=== PATIENT | female | born 1960 | race Caucasian/White ===

== ENCOUNTER 2016-05-15 21:22 | Emergency (ER) | payer OTHER ==
[~2016-05-15] VITALS: Ht 170.2 cm; Wt 127.3 kg
[~2016-05-15 21:22] MED LIST: FES300 PO; HYDROCHLOROTHIAZIDE; RIZA5TAB34 PO; ROPI2TAB2 PO; TRIAMTERENE; [UNRECOGNIZED DRUG - MIXTURE]
[2016-05-15 21:37] VITALS: BP 173/107; PULSE 154; RESP 19; O2SAT 94
--- NOTE | 2016-05-15 21:53 | ED.REPORT ---
HPI-Chest Pain 40 and Over Date of Service May 15, 2016 ED Provider: Genaro Hassan MD Patient is a 56 year old female with a hx of HTN who presents to the ED following an episode of dysrhythmia last night. About a week ago, she woke up in the middle of the night rapid heart rate which lasted for about an hour. She has had three of these episodes over the past two months. Her episode last night felt worse then any previous episode. She is not on any anticoagulants and takes one baby aspirin every day. Pt is diaphoretic and does not report any other symptoms. Nursing Notes Stated Complaint: SOB, IRREGULAR HEART BEAT Chief Complaint: Dysrhythmia/Cardiac Nursing Notes Reviewed: Yes Allergies: Coded Allergies: Penicillins (Verified Allergy, Severe, 02/04/09) rash/nausea/vomiting diclofenac (Verified Allergy, Severe, RASH, 02/04/09) got quite sick Scheduled ([HCTZ/Tri 37.5/25mg]) AM Multivitamins/Vit C (Vitamin C 500MG W/ Folic Acid) Tab TID Ropinirole Hcl-Expunged Drug, Do Not Renew! (Requip-Expunged Drug, Do Not Renew! ) 2 Mg Tablet 2 MG PO HS General Time Seen by MD: 21:52 Chief Complaint Other (tachycardia) Hx Obtained From: Patient Arrived By: Walk-in Sudden in Onset?: Yes Onset Occurred: 1 day ago Symptom Duration: Since onset Severity: Current: No pain currently Recent Healthcare: No recent doctor visit, No recent hospitalization Similar Sx Previous: No Past Medical History Past Medical History Reports: Hypertension Past Surgical History Reports: Hysterectomy Family History colon cancer Social History Other Social History: , Local resident Ambulatory Status Independent Review of Systems Review of Systems Note: dysrhythmia, episode of tachycardia Skin: Reports Diaphoresis Complete sys rev & neg: except as marked. Physical Exam Initial Vital Signs Vital Signs (First) Date Time Temp Pulse Resp B/P Pulse Ox O2 Delivery O2 Flow Rate FiO2 05/15/16 21:37 37.0 154 19 173/107 94 Room Air Initial VS: Reviewed, Vital signs abnormal General/Constitutional: Awake, Alert, Well appearing, Well developed, Cooperative Appearance / Presentation: Positive: Obese Respiratory / Chest: Atraumatic, Breath sounds NL, Breath sounds = bilat, No respiratory distress, No rales, No rhonchi, No wheezing, No retractions Heart Rate / Rhythm: Positive: Irreg irregular rhythm, Tachycardia bilateral trace pitting edema chest mccormack nontender Interpretation & Diagnostics Lab Results Interpretation Result Diagram: 05/15/16214405/15/162144 Test 05/15/16 21:45 05/15/16 23:12 White Blood Count 7.0th/mm3 (3.8-10.1) Red Blood Count 4.68mil/mm3 (3.90-5.20) Hemoglobin 13.6g/dL (12.0-15.6) Hematocrit 41.6% (35.0-46.0) Mean Corpuscular Volume 88.9fL (81-100) Mean Corpuscular Hemoglobin 29.1pg (27.0-35.0) Mean Corpuscular Hemoglobin Concent 32.7% (32.0-37.0) Red Cell Distribution Width 14.8% (12.3-15.4) Platelet Count 209bil/L (150-400) Neutrophils (%) (Auto) 59.1% (40-74) Lymphocytes (%) (Auto) 28.0% (14-46) Monocytes (%) (Auto) 10.7% (4-12) Eosinophils (%) (Auto) 2.0% (0-5) Basophils (%) (Auto) 0.1% (0-3) Hold Purple Top Tube Received (Received) Prothrombin Time 10.1sec (8.1-12.5) Prothromb Time International Ratio 0.95ratio Hold Blue Top Tube Received (Received) Sodium Level 143mEq/L (134-144) Potassium Level 3.5mEq/L (3.5-5.2) Chloride Level 100mEq/L (97-108) Carbon Dioxide Level 28mmol/L (18-29) Blood Urea Nitrogen 16mg/dL (6-24) Creatinine 0.72mg/dL (0.57-1.00) Estimat Glomerular Filtration Rate 120mL/min (>59) Glucose Level 95mg/dL (60-99) Calcium Level 9.5mg/dL (8.5-10.1) Magnesium Level 2.3mg/dL (1.6-2.6) Total Bilirubin 0.3mg/dL (0.0-1.2) Aspartate Amino Transf (AST/SGOT) 24U/L (0-50) Alanine Aminotransferase (ALT/SGPT) 28U/L (0-32) Alkaline Phosphatase 108U/L (25-150) Troponin T 0.010ug/L (0.0-0.011) Total Protein 7.6g/dL (6.4-8.4) Albumin 4.2g/dL (3.4-5.0) Hold Red Top Tube Received (Received) Hold [place] Top Tube Received (Received) Hold [place]roy Top Tube Received (Received) Hold Urine Received (Received) Lab values outside NL range: no clinical significance. ECG Interpretation ECG Interpretation: left ventricular hyptertrophy Time: 21:40 Interpreted by: ED physician Rhythm / Conduction: Atrial fibrillation (150) ECG Interpretation: left ventricular hyptertrophy Time: 23:21 Interpreted by: ED physician Normal ECG Interpretation: Normal sinus rhythm (83) Re-Eval/Medical Decision Med Decision/Clinical Course 56-year-old female who had rapid A. fib with hypertension, who was given Cardizem 15 mg with slowing of her rate and then eventual conversion to normal sinus rhythm. Case was discussed with Dr. Canales (home performance consultant) who recommended increasing her aspirin from 81 to325 and she will see her in the office. Time of Eval: 23:00 Patient Status: Condition improved Re-Evaluation/Progress Note: Pt rechecked. Her heart rate has slowed and she now has a normal sinus rhythm. All her labs are normal. Will consult home performance consultant. Pt understands and agrees with plan. Time of Eval: 23:23 Patient Status: Condition improved Re-Evaluation/Progress Note: Pt rechecked. Pt informed of consultation with Dr. Canales and plan for treatment. Return to ED warnings given. Pt understands and agrees with plan. Consultation : Referral / Consult Name: Amanda Canales MD Consulted With: Cardiology Call Returned at: 23:14 Dumpcart Driver: Agrees with eval, Agrees with plan Note: Case discussed. Dr. Canales recommends a follow up visit and will call patient in the morning. She recommends the patient increase her aspirin dose to 325 mg daily. Counseled Regarding: Diagnosis, Lab results, Need for follow-up, When/why to return to ED Discharge & Departure Primary Impression: Atrial fibrillation Atrial fibrillation type: paroxysmal Qualified Code: I48.0 - Paroxysmal atrial fibrillation Disposition: Home Discharge Condition All VS Reviewed: Yes Condition: Stable Patient Instructions: Atrial Fibrillation (ED) Additional Instructions: We slowed your rate with Cardizem 15 mg IV. The rhythm then converted from atrial fibrillation back to a normal sinus rhythm. All of your labs were normal. Your EKG showed no significant changes other than the abnormal rhythm. I spoke with Dr. Canales, home performance consultant. She recommended a follow-up visit, she will call you to schedule an appointment. She recommended increasing your aspirin to 325 daily. Return to the emergency room if you have recurrent rapid or irregular heartbeat. Referrals: Glen De La Fuente MD (PCP) Scribe Attestation Portions of this note were transcribed by Tamara Kamara. I, Dr. Hassan personally performed the history, physical exam and medical decision-making; I reviewed and confirmed the accuracy of the information in the transcribed note. Signed by: Mckenzie Nair, 05/15/16 [id number] copies to: Glen De La Fuente MD, Howard L MD May 15, 2016 21:53 TAMARA KAMARA May 15, 2016 22:02
[2016-05-15] MEDS ORDERED: Diltiazem 5 mg/mL 5 mL Inj IVPUSH ONE (21:55)
[2016-05-15 22:11] LABS: BASOPHILS % (AUTO) 0.1 % (0-3); MONOCYTES % (AUTO) 10.7 % (4-12); Mean Corpuscular Hemoglobin 29.1 pg (27.0-35.0); Mean Corpuscular Volume 88.9 fL (81-100); NEUTROPHILS % (AUTO) 59.1 % (40-74); Platelet Count 209 bil/L (150-400)
[2016-05-15 22:16] LABS: INR 0.95 ratio
[2016-05-15 22:49] LABS: Magnesium 2.3 mg/dL (1.6-2.6); TROPONIN T 0.01 ug/L (0.0-0.011)
[2016-05-15 23:19] VITALS: BP 151/91; PULSE 85; RESP 16; O2SAT 94
[2016-05-15 23:38] VITALS: BP 136/71; PULSE 85; RESP 14; O2SAT 95
--- NOTE | 2016-05-16 08:19 | DRSVH ---
PROCEDURE: X-RAY CHEST ONE VIEW, PORTABLE ([id number]) INDICATIONS: 56 year-old female with atrial fibrillation. TECHNIQUE: One view of the chest was acquired. COMPARISON: None. FINDINGS: Surgical changes and devices: None. Lungs and pleura: No pleural effusions or pneumothorax. Lungs are clear. Mediastinum: Mediastinal contours appear normal. Heart size is normal given AP technique. Bones and chest wall: No suspicious bony lesions. Overlying soft tissues appear unremarkable. IMPRESSION: No acute cardiopulmonary disease. Dictated by: Wilder Razo M.D. on 05/16/2016 at 8:17 Approved by: Wilder Razo M.D. on 05/16/2016 at 8:18
== END 2016-05-15 23:28 | disposition home or self-care (01) ==
LOC: SED 21:22
DX: I48.0 Paroxysmal atrial fibrillation (principal); R61 Generalized hyperhidrosis; I10 Essential (primary) hypertension; Z79.82 Long term (current) use of aspirin; Z88.0 Allergy status to penicillin; Z88.8 Allergy status to other drugs, medicaments and biological substances